=== PATIENT | female | born 1985 | race Caucasian/White ===

== ENCOUNTER 2017-07-26 21:37 | Emergency (ER) | payer MEDICAID ==
[~2017-07-26] VITALS: Ht 165.1 cm; Wt 84.1 kg
[~2017-07-26 21:37] MED LIST: CARAFATE 1GM1 G PO; CELEXA20 MG PO; CRANBERRY1 CAP PO; DEXILANT60 MG PO; EFFEXOR 75M75 MG/TAB PO; METRONIDAZOLE500 MG PO; MULTIVITAMIN FO1 CAP PO; NORCO 325 MG-51 TAB PO; NORCO 325 MG-7.1 TAB PO; PERCOCET 325 MG1 TA2 PO; REGLAN 10MG10 MG/TAB PO; RITE AID BIO2500 MCG PO; [UNRECOGNIZED DRUG - REMARK]
[2017-07-26 21:39] VITALS: TEMP 99
[2017-07-26] MEDS ORDERED: EFFEXOR-XR150 MG PO (21:49)
[2017-07-26] MEDS ORDERED: FLEXERIL 1010 MG/TAB PO (21:49)
[2017-07-26] MEDS ORDERED: PROBIOTIC FORMU1 CAP PO (21:50)
[2017-07-26] MEDS ORDERED: PREDNISONE20 MG PO (22:16)
[2017-07-26] MEDS ORDERED: ZITHROMAX 250M250 MG PO (22:16)
[2017-07-26 22:32] VITALS: BP 111/63; PULSE 102
== END 2017-07-26 22:32 | disposition home or self-care (01) ==
LOC: COL.ER 21:37
DX: J45.909 Unspecified asthma, uncomplicated (principal); F32.9 Major depressive disorder, single episode, unspecified; F17.210 Nicotine dependence, cigarettes, uncomplicated; Z90.49 Acquired absence of other specified parts of digestive tract; Z90.710 Acquired absence of both cervix and uterus
CPT/HCPCS: J7512